=== PATIENT | female | born 1990 | race Caucasian/White ===

== ENCOUNTER 2019-01-16 21:14 | Emergency (ER) | payer MEDICAID ==
[~2019-01-16] VITALS: Wt 78.0 kg
[2019-01-17] MEDS ORDERED: PHEN-538 PO (04:41)
[2019-01-17] MEDS ORDERED: CEPH-443 PO (04:41)
--- NOTE | 2019-01-17 04:45 | ERD ---
ER Documentation Chief Complaint Chief Complaint pelvic area pain x 3 days HPI 29-year-old female is here with 3 days of pelvic pain with associated dysuria and urinary frequency. No hematuria. No fever. No nausea or vomiting. Denies possibility of . ROS All systems reviewed and are negative except as per history of present illness. Medications Home Meds Active Scripts Phenazopyridine Hcl* (Pyridium*) 200 Mg Tab, 200 MG PO TID PRN for URINARY PAIN, #6 TAB Prov:AMBER HERZOG PA-C 01/17/19 Cephalexin* (Keflex*) 500 Mg Capsule, 500 MG PO TID for 5 Days, CAP Prov:AMBER HERZOG PA-C 01/17/19 Allergies Allergies: Coded Allergies: No Known Drug Allergies (Verified Allergy, Unknown, 01/16/19) PMhx/Soc Medical and Surgical Hx: pt denies Medical Hx, pt denies Surgical Hx Hx Alcohol Use: No Hx Substance Use: No Hx Tobacco Use: No Smoking Status: Never smoker FmHx Family History: No diabetes Physical Exam Vitals Vital Signs Date Temp Pulse Resp B/P (MAP) Pulse Ox O2 O2 Flow FiO2 Time Delivery Rate 01/16/19 98.8 99 18 130/74 98 21:20 (92) Physical Exam INITIAL VITAL SIGNS: Reviewed by me GENERAL: Awake, alert and oriented x 4, well appearing, nontoxic, speaking in full sentences. No acute distress HEAD: Atraumatic NECK: Supple. No masses. Full range of motion. No meningismus. No midline tenderness. EYES: EOMI. PERRL. RESPIRATORY: Clear to auscultation bilaterally. Symmetric chest wall rise. No wheezing or rales. No accessory muscle use. CV: Regular rate and rhythm. No murmurs, rubs, or gallops. ABDOMEN: Soft, non-distended. Nontender. Negative [place]. Negative [place] point tenderness. No CVA tenderness bilaterally. No guarding. No rebound. : Deffered. Results 24 hrs Laboratory Tests Test 01/17/19 04:24 01/17/19 04:27 Bedside Urine pH (LAB) 6.5 Bedside Urine Protein (LAB) Negative Bedside Urine Glucose (UA) Negative Bedside Urine Ketones (LAB) Negative Bedside Urine Blood 2+ Bedside Urine Nitrite (LAB) Negative Bedside Urine Leukocyte Esterase (L 2+ POC Beta HCG, Qualitative NEGATIVE Procedures/MDM Patient presents with symptoms consistent with UTI. UTI confirmed on urine dip. Patient discharged with Pyridium and Keflex. Patient counseled regarding my diagnostic impression and care plan. Prior to discharge all questions answered. Pt agrees with treatment plan and understands strict return precautions. Pt is instructed to follow up with primary care provider within 24-48 hours. Precautionary instructions provided including instructions to return to the ER if not improving or for any worsening or changing symptoms or concerns. Departure Diagnosis: Primary Impression: UTI (urinary tract infection) Condition: Stable Patient Instructions: Understanding Urinary Tract Infections (UTIs) Additional Instructions: Llame al doctor MAANA y marilynn faby MART PARA DENTRO DE 1-2 PRIETO.Dgale a la secretaria que nosotros le instruimos hacer esta mart.Avise o llame si diggs condicin se empeora antes de la mart. Regresa aqui si peor o no mejor. AMBER HERZOG PA-C Jan 17, 2019 04:45
[2019-01-17 05:02] VITALS: BP 111/68; PULSE 94; RESP 18
== END 2019-01-17 05:22 | disposition home or self-care (01) ==
LOC: FTE 21:14
DX: N39.0 Urinary tract infection, site not specified (principal)
CPT/HCPCS: 81003; 81025; Z7502; 99283